=== PATIENT | female | born 1970 | race Caucasian/White ===

== ENCOUNTER → 2019-11-01 | Outpatient (CLI) | payer BC ==
[2019-11-01 09:31] LABS: EOS # 0.2 (0.04-0.40); EOS % 3.5 % (1.0-5.0); HEMATOCRIT 45.7 % (37.0-47.0); HEMOGLOBIN 15.2 g/dL (12.5-16.0); MEAN CELL VOLUME 91 fl (78-100); MEAN CORPUSCULAR HEMOGLOBIN 30 pg (27-31); MEAN CORPUSCULAR HGB CONC 33 g/dL (33-37); MEAN PLATELET VOLUME 9.7 fl (7.4-10.4); MONO # 0.5 (0.20-0.80); NEU # 2.4 (1.40-6.50); PLATELET COUNT 342 K/mm3 (130-400); RED BLOOD COUNT 5.04 M/mm3 (4.10-5.30); RED CELL DISTRIBUTION WIDTH 14.3 % (11.5-14.5); WHITE BLOOD COUNT 5.2 K/mm3 (4.8-10.8)
[2019-11-01 09:32] LABS: ALBUMIN 3.6 g/dL (3.5-5.0); POTASSIUM 4.3 mmol/L (3.5-5.1)
[2019-11-01 09:35] LABS: TOTAL PROTEIN 6.7 g/dL (6.4-8.3)
[2019-11-01 09:37] LABS: TOTAL BILIRUBIN 0.5 mg/dL (0.2-1.2)
[2019-11-01 09:57] LABS: PH-URINE 6.5 (5.0 - 8.0); URINE APPEARANCE CLEAR; URINE BILIRUBIN NEGATIVE (NEGATIVE); URINE BLOOD NEGATIVE (NEGATIVE); URINE COLOR LT YELLOW; URINE GLUCOSE NEGATIVE (NEGATIVE); URINE KETONE NEGATIVE (NEGATIVE); URINE LEUKOCYTE ESTERASE NEGATIVE (NEGATIVE); URINE NITRATE NEGATIVE (NEGATIVE); URINE PROTEIN(semi-quant) NEGATIVE (NEGATIVE); URINE UROBILINOGEN NORMAL (NORMAL); URINE WBC 0-1 /hpf (0-3)
== END ==
LOC: LAB 08:49
PROVIDERS: Nurse Practitioner
DX: R14.0 Abdominal distension (gaseous) (principal); R14.3 Flatulence

== ENCOUNTER → 2019-11-04 | Outpatient (CLI) | payer BC ==
[2019-11-04 22:07] LABS: CLUE CELLS NOT OBSERVED (Not Observd)
== END ==
LOC: LAB 17:47
PROVIDERS: Nurse Practitioner
DX: R14.0 Abdominal distension (gaseous) (principal)
CPT/HCPCS: Q0111

== ENCOUNTER → 2019-11-07 | Outpatient (CLI) | payer BC | LOC: RAD 07:11 | DX: R14.0 Abdominal distension (gaseous) (principal); R14.3 Flatulence ==

== ENCOUNTER → 2019-11-10 | Outpatient (CLI) | payer BC | LOC: RAD 09:59 | DX: K76.89 Other specified diseases of liver (principal); N28.1 Cyst of kidney, acquired; Z80.0 Family history of malignant neoplasm of digestive organs | CPT/HCPCS: Q9967 ==